=== PATIENT | male | born 1965 | race Caucasian/White ===

== ENCOUNTER 2018-04-08 09:34 | Day surgery (SDC) | payer OTHER ==
[2018-04-03 10:28] VITALS: BMI 26.4
[~2018-04-08 09:34] MED LIST: LACTATED RINGERS 1,000 ML IV SCH
[2018-04-08 10:03] VITALS: RESP 16
[2018-04-08] MEDS ORDERED: PROPOFOL 10 MG/ML 20 ML VIAL IV ONE (11:29)
--- NOTE | 2018-04-08 11:32 | P.GSHP ---
History of Present Illness H&P Date: 04/08/18 Chief Complaint: Screening colonoscopy This is a 52-year-old male referred from Dr. Shaniqua ngo. Patient presents today for screening colonoscopy. His never had a colonoscopy before. He denies any significant GI complaints. Past Medical History Past Medical History: No Reported History History of Any Multi-Drug Resistant Organisms: None Reported Past Surgical History: No Surgical Hx Reported Additional Past Surgical History / Comment(s): EGD Past Anesthesia/Blood Transfusion Reactions: No Reported Reaction Smoking Status: Never smoker - Past Family History Father Family Medical History: Cancer Sister(s) Family Medical History: Cancer Medications and Allergies Home Medications Medication Instructions Recorded Confirmed Type Fluticasone Nasal [place] [Flonase 1 spray EA NOSTRIL DAILY 04/08/18 04/08/18 History Nasal [place]] Allergies Allergy/AdvReac Type Severity Reaction Status Date / Time No Known Allergies Allergy Verified 04/08/18 10:09 Surgical - Exam Vital Signs Pulse Resp BP Pulse Ox 62 16 136/82 99 04/08/18 09:59 04/08/18 09:59 04/08/18 09:59 04/08/18 09:59 - General well developed, no distress - Eyes PERRL - ENT normal pinna - Neck no masses - Respiratory normal expansion - Cardiovascular Rhythm: regular - Abdomen Abdomen: soft, non tender Assessment and Plan Assessment: We'll perform screening colonoscopy
--- NOTE | 2018-04-08 11:51 | P.OP ---
Date of Procedure: 04/08/18 Preoperative Diagnosis: Screening colonoscopy Postoperative Diagnosis: Diverticulosis Procedure(s) Performed: Colonoscopy Anesthesia: MAC Surgeon: Jamin Jarrett Pathology: none sent Condition: stable Disposition: PACU Description of Procedure: The patient's placed on the endoscopy table in the lateral position. He received IV sedation. Digital rectal exam was performed which revealed no abnormalities. Flexible colonoscope was then placed patient anus passed throughout the entire colon. The ileocecal valve was visualized. The cecum, ascending and transverse colon appeared normal. Scope was then brought back into this descending and sigmoid colon and there was mild diverticulosis. Scope was then brought back the rectum and this appeared normal. The scope was withdrawn for patient.
[2018-04-08 12:07] VITALS: BP 110/76; PULSE 66
== END 2018-04-08 12:22 | disposition home or self-care (01) ==
LOC: ORWHC2ENDO 09:34
PROVIDERS: ATTEND Surgery
DX: Z12.11 Encounter for screening for malignant neoplasm of colon (principal); K57.30 Diverticulosis of large intestine without perforation or abscess without bleeding; Z79.899 Other long term (current) drug therapy
CPT/HCPCS: J2704; G0121